=== PATIENT | female | born 1985 | race Caucasian/White ===

== ENCOUNTER 2023-09-03 10:39 | Emergency (ER) | payer MEDICAID, SELFPAY ==
[2023-09-03 11:05] VITALS: BP 124/83; PULSE 76; RESP 18; TEMP 36.9; O2SAT 100; BMI 25.7
--- NOTE | 2023-09-03 11:14 | EXP.UTC ---
Discharge Plan Disposition Patient Disposition: Home, Self-Care Condition: Good Prescriptions Prescriptions: New methylprednisolone 4 mg Tablets,Dose Pack 4 mg PO DIRECTED 6 Days Qty: 21 0RF Rx Instructions: Take 1 pack as directed for 6 days amoxicillin-pot clavulanate 875-125 mg Tablet 1 tab PO Q12H 7 Days Qty: 14 0RF Referrals Follow up/Referrals: Andres Glover DO [Staff Physician] - See instructions Fernando Washington PA [Primary Care Provider] - See instructions Activity Restrictions/Add. Instructions Additional Instructions/Restrictions: Rest the extremity, Elevate the extremity as tolerated while you are resting. Take the medications as directed. Follow up with Dr. Glover (orthopedics). I put in a referral but you need to call his office and schedule an appointment. Follow up with your regular doctor. GO TO THE ER FOR ANY WORSENING SYMPTOMS Clinical Impressions Clinical Impression: Tenosynovitis of left wrist Instructions Patient Instructions: Tenosynovitis, DI for Tenosynovitis Discharge ED Provider: Robin Jordan [facility] General Stated complaint: 08/03, cat bite, bruising Time Seen by Provider: 09/03/23 11:14 History of Present Illness Provider Complaint: She states that she was bit by her cat on the inner aspect of her right wrist 1 month ago. She was treated with augmentin at that time and the wounds healed. She states that all her symptoms were resolved, but then 2 days ago she began having pain of her wrist and the palm of her hand with movment. She also states that the area around where the bite occurred has became tender to touch over the past 2 days also. She denies any redness, swelling or warmth of the affected area. She denies any additional symptoms or complaints. Related Data Previous Rx's Medication Instructions Recorded amoxicillin 875 mg-potassium 1 tab PO Q12H 7 days #14 tabs 09/03/23 clavulanate 125 mg tablet methylprednisolone 4 mg tablets in 4 mg PO DIRECTED 6 days #21 tabs 09/03/23 a dose pack Allergies Allergy/AdvReac Type Severity Reaction Status Date / Time clarithromycin [From Biaxin] Allergy Verified 09/03/23 11:18 valacyclovir Allergy Verified 09/03/23 11:18 [facility] Disclaimer: The information contained in this section may have been updated after the patient was seen, as this information can be updated by other users. Medical History (Updated 09/03/23 @ 11:37 by Robin Jordan APRN) Depression Anxiety Thyroid disease Urinary tract infection History of gastroesophageal reflux (GERD) Hyperlipidemia Lyme disease Surgical History (Updated 09/03/23 @ 11:21 by Kathy Farah RN) History of cholecystectomy Social History Smoking Status: Never smoker alcohol intake: never current occupational status: unemployed Travel in the last 8 weeks: None ROS Obtained: Yes All systems reviewed & no additional complaints except as documented Constitutional Constitutional: Denies chills and Denies fever(s) Eyes Eyes: Denies eye discharge ENT Ears, Nose, Mouth, and Throat: Denies dizziness, Denies otalgia and Denies sore throat Cardiovascular Cardiovascular: Denies chest pain Respiratory Respiratory: Denies shortness of breath, Denies chest congestion, Denies cough, Denies stridor and Denies wheezing Gastrointestinal Gastrointestingal: Denies nausea or vomiting Musculoskeletal Musculoskeletal: Reports as per HPI Integumentary/Breasts Skin/Breast: Denies redness, Denies rash and Denies wounds Neurologic Neurologic: Denies dizziness and Denies paresthesias Allergic/Immunologic Allergic/Immunologic: Denies wheezing Physical Exam General General appearance: alert and in no apparent distress Head Head exam: atraumatic, normocephalic and normal inspection Eye Eye exam: Present normal appearance, PERRL and EOMI ENT ENT exam: Present normal exam, normal oropharynx, mucous membranes moist, TM's normal bilaterally and normal external ear exam Neck Neck exam: Present normal inspection, full ROM and trachea midline; Absent meningismus or lymphadenopathy Chest Chest inspection: Present normal inspection and symmetric chest wall rise; Absent tenderness Respiratory Respiratory exam: Present normal lung sounds bilaterally; Absent respiratory distress Cardiovascular Cardiovascular exam: Present regular rate and normal rhythm; Absent JVD Abdominal Exam Abdominal exam: Present soft and normal bowel sounds; Absent distention, tenderness or guarding Extremities Exam Extremities exam: Present normal capillary refill; Absent calf tenderness Expanded Upper Extremity Exam Right: Elbow exam: Present normal inspection and full ROM; Absent tenderness, pain w/ pronation/supination or tenderness over radial head Forearm/Wrist exam: Present full ROM and tenderness; Absent swelling, abrasion, laceration, ecchymosis, deformity, crepitus, dislocation, erythema, tenderness over anatomical snuff box or pain with axial thumb loading Hand exam: Present full ROM and tenderness; Absent swelling, abrasion, laceration, skin avulsion, ecchymosis, deformity, crepitus, dislocation, erythema, amputation, nail avulsion or subungual hematoma Neuromotor exam: Normal wrist extension, thumb opposition, thumb IP flexion, thumb adduction and fingers 2-5 abduction Neurosensory exam: Normal radial nerve, ulnar nerve and median nerve Vascular exam: Normal capillary refill, radial pulse and ulnar pulse Back Exam Back exam: Present normal inspection; Absent tenderness Neurological Exam Neurological exam: Present alert and oriented X3 Psychiatric Psychiatric exam: Present normal affect and normal mood Skin Skin exam: Present warm, dry, intact, normal color and other (no redness, swelling or warmth noted in the affected area. ) Lymphatic Lymphatic Findings: no adenopathy Medical Decision Making Joe Inquiry Pt receiving controlled substance: No Procedures Risk/Benefits of Procedure(s) Were Explained: Yes Orthopedic Splinting/Casting Injury #1: Side: right Upper Extremity Injury Location: wrist and hand Upper Extremity Immobilizer: volar splint Post Cast/Splinting Neuro Status: intact and no change Post Cast/Splinting Vasc Status: intact and no change
[2023-09-03 11:41] VITALS: BP 124/83; PULSE 76; RESP 18; TEMP 36.9; O2SAT 100
== END 2023-09-03 12:01 | disposition home or self-care (01) ==
PROVIDERS: Emergency Provider Nurse Practitioner Family; PCP Physician Assistant
DX: M65.841 Other synovitis and tenosynovitis, right hand (principal); Z56.0 Unemployment, unspecified
CPT/HCPCS: 99204; 99212; G0463

== ENCOUNTER 2023-10-18 11:55 | Emergency (ER) | payer MEDICAID, SELFPAY ==
[2023-10-18 12:10] VITALS: BP 130/80; PULSE 74; RESP 18; TEMP 36.8; O2SAT 98; BMI 25.7
--- NOTE | 2023-10-18 12:18 | EXP.UTC ---
Discharge Plan Disposition Patient Disposition: Home, Self-Care Condition: Good Prescriptions Prescriptions: New sucralfate [Carafate] 100 mg/mL suspension 5 ml PO QID 14 Days Qty: 280 0RF Rx Instructions: swish in mouth and swallow; use after food/drink esomeprazole magnesium 20 mg capsule,delayed release(DR/EC) 20 mg PO DAILY Qty: 30 0RF No Action amitriptyline 25 mg tablet 25 mg PO DAILY hydroxyzine HCl 25 mg tablet 25 mg PO DAILY Referrals Follow up/Referrals: Helder Morton MD [Physician] - See instructions Fernando Washington PA [Primary Care Provider] - See instructions Activity Restrictions/Add. Instructions Additional Instructions/Restrictions: Drink plenty of water. Take the medications as directed. Follow up with your regular doctor. Follow up with your GI specialist. GO TO THE ER FOR ANY WORSENING SYMPTOMS We will culture your urine. The u/s results looked okay, but we will let you know about the culture results in 3 days. Clinical Impressions Clinical Impression: Gastritis, Eosinophilic esophagitis Instructions Patient Instructions: Sucralfate, Esomeprazole Discharge ED Provider: Robin Jordan [facility] [place] General Stated complaint: gi inflammation Time Seen by Provider: 10/18/23 12:18 History of Present Illness Provider Complaint: She states that for the past 2 weeks she has had worsening heart burn, poor appetite, epigastric cramping. She had an EGD and Colonoscopy done at 3 weeks ago and she was told she had Eosinophillic esophagitis, but nothing else. Related Data Home Medications Medication Instructions Recorded Confirmed amitriptyline 25 mg tablet 25 mg PO DAILY 10/18/23 10/18/23 hydroxyzine HCl 25 mg tablet 25 mg PO DAILY 10/18/23 10/18/23 Previous Rx's Medication Instructions Recorded esomeprazole magnesium 20 mg 20 mg PO DAILY #30 caps 10/18/23 capsule,delayed release sucralfate 100 mg/mL oral 5 ml PO QID 14 days #280 mL 10/18/23 suspension (Carafate) Allergies Allergy/AdvReac Type Severity Reaction Status Date / Time clarithromycin [From Biaxin] Allergy Vomiting Verified 10/18/23 12:22 valacyclovir Allergy Palpitation Verified 10/18/23 12:22 [facility] Disclaimer: The information contained in this section may have been updated after the patient was seen, as this information can be updated by other users. Medical History (Updated 10/18/23 @ 13:09 by Robin Jordan APRN) Depression Anxiety Thyroid disease Urinary tract infection History of gastroesophageal reflux (GERD) Hyperlipidemia Lyme disease Surgical History History of cholecystectomy Social History Smoking Status: Never smoker alcohol intake: never current occupational status: unemployed Travel in the last 8 weeks: None ROS Obtained: Yes All systems reviewed & no additional complaints except as documented Constitutional Constitutional: Denies chills, Denies fever(s) and Reports poor appetite ENT Ears, Nose, Mouth, and Throat: Denies dizziness, Denies dysphagia, Denies odynophagia and Denies sore throat Cardiovascular Cardiovascular: Denies dyspnea Respiratory Respiratory: Denies chest congestion, Denies cough and Denies dyspnea Gastrointestinal Gastrointestingal: Reports as per HPI, belching, cramping, diarrhea, dyspepsia, early satiety, heartburn and nausea; Denies abdominal pain, dysphagia, hematemesis, hematochezia, loose stools, melena, odynophagia or vomiting Genitourinary Female Genitourinary: Denies difficulty voiding, Denies dysuria, Denies hematuria, Denies urinary frequency, Denies urinary incontinence, Denies urinary hesitancy and Denies urinary urgency Musculoskeletal Musculoskeletal: Denies arthralgias Integumentary/Breasts Skin/Breast: Denies rash Neurologic Neurologic: Denies dizziness Physical Exam General General appearance: alert and in no apparent distress Head Head exam: atraumatic and normocephalic Eye Eye exam: Present normal appearance, PERRL and EOMI ENT ENT exam: Present normal exam, normal oropharynx, mucous membranes moist, TM's normal bilaterally and normal external ear exam Neck Neck exam: Present normal inspection, full ROM and trachea midline; Absent tenderness, meningismus or lymphadenopathy Chest Chest inspection: Present normal inspection and symmetric chest wall rise; Absent tenderness, rash or abscess Respiratory Respiratory exam: Present normal lung sounds bilaterally; Absent respiratory distress, wheezes or stridor Cardiovascular Cardiovascular exam: Present regular rate and normal rhythm; Absent irregular rhythm, systolic murmur, diastolic murmur or JVD Abdominal Exam Abdominal exam: Present soft and normal bowel sounds; Absent distention, tenderness, guarding, rebound, rigidity, psoas sign, obturator sign, heel tap sign, Hope's sign, Rovsing's sign or tenderness at McBurney's Point Extremities Exam Extremities exam: Present normal inspection and full ROM; Absent tenderness Back Exam Back exam: Present normal inspection and full ROM; Absent tenderness, CVA tenderness (R) or CVA tenderness (L) Neurological Exam Neurological exam: Present alert, oriented X3 and CN II-XII intact Psychiatric Psychiatric exam: Present normal affect and normal mood Skin Skin exam: Present warm, dry, intact and normal color Lymphatic Lymphatic Findings: no adenopathy Medical Decision Making Medical Records Medical records reviewed: No I reviewed the patient's medical records. Joe Inquiry Pt receiving controlled substance: No Lab Data Lab results reviewed: Yes I reviewed the patient's lab results.
[2023-10-18 13:07] LABS: Apearance,Urine Clear (Clear); Bilirubin,Urine Negative (Negative); Blood, Urine 2+ (Negative); Color,Urine Yellow (Yellow); Glucose,Urine (UA) Negative (Negative); Ketones,Urine Negative (Negative); Protein,Urine Negative (Negative); UTC Leukocyte Esterase,Urine Trace (Negative); Urobilinogen,Urine 0.2 EU/dl (0.2)
[2023-10-18 13:08] LABS: UTC Nitrate,Urine Negative (Negative)
--- NOTE | 2023-10-18 13:08 | PC.NURSE ---
Sent urine to lab via tube system
[2023-10-18 13:16] VITALS: BP 130/80; PULSE 74; RESP 18; TEMP 36.8; O2SAT 98
== END 2023-10-18 13:16 | disposition home or self-care (01) ==
PROVIDERS: Emergency Provider Nurse Practitioner Family; PCP Physician Assistant
DX: K29.00 Acute gastritis without bleeding (principal); K20.0 Eosinophilic esophagitis; B96.29 Other Escherichia coli [E. coli] as the cause of diseases classified elsewhere
CPT/HCPCS: 81003; 87086; 87088; 87186; 99212; 99214; G0463

== ENCOUNTER 2023-12-24 10:48 | Emergency (ER) | payer MEDICAID, SELFPAY ==
[2023-12-24] VITALS (7 sets, daily range): BP systolic 111–136; BP diastolic 65–89; PULSE 64–88; RESP 19–20; TEMP 36.7–36.8; O2SAT 96–99; BMI 25.7
--- NOTE | 2023-12-24 10:48 | ECG_ITS ---
APPROVED REPORT Exam: Resting ECG HR:85 bpm ECG Measurements Heart Rate 85 AXES AZ 104 P 70 QRSd 97 QRS 80 QT 365 T 63 QTc 407 Conclusion SINUS RHYTHM WITH SINUS ARRHYTHMIA WITH SHORT AZ INTERVAL INCOMPLETE RIGHT BUNDLE BRANCH BLOCK [90+ ms QRS DURATION, TERMINAL R IN V1/V2, 40+ ms S IN I/aVL/V4/V5/V6] Electronically signed by : JUNAID DOMINGUEZ, 12/24/2023 14:17:11
--- NOTE | 2023-12-24 10:54 | XR_ITS ---
PROCEDURE INFORMATION: Exam: XR Chest Exam date and time: 12/24/2023 11:33 AM Age: 38 years old Clinical indication: Shortness of breath; Additional info: Palpitations, SOA TECHNIQUE: Imaging protocol: Radiologic exam of the chest. Views: 2 views. COMPARISON: No relevant prior studies available. FINDINGS: Lungs: 8 mm nodularity superimposed upon the right lower lung. Findings most likely correspond to a nipple shadow. Follow-up with nipple markers would be helpful. Pleural spaces: Unremarkable. No pleural effusion. No pneumothorax. Heart/Mediastinum: Unremarkable. No cardiomegaly. Bones/joints: Unremarkable. IMPRESSION: 1. 8 mm nodularity superimposed upon the right lower lung. Findings most likely correspond to a nipple shadow. Follow-up with nipple markers would be helpful. 2. No evidence of acute cardiopulmonary disease.
--- NOTE | 2023-12-24 10:55 | HMH.EDGENADL ---
Discharge Plan Disposition Patient Disposition: Home, Self-Care Condition: Good Prescriptions Prescriptions: New atenolol 25 mg tablet 25 mg PO DAILY Qty: 30 1RF methimazole 5 mg tablet 5 mg PO DAILY Qty: 30 1RF No Action amitriptyline 25 mg tablet 25 mg PO DAILY hydroxyzine HCl 25 mg tablet 25 mg PO DAILY sucralfate [Carafate] 100 mg/mL suspension 5 ml PO QID 14 Days Qty: 280 0RF Rx Instructions: swish in mouth and swallow; use after food/drink esomeprazole magnesium 20 mg capsule,delayed release(DR/EC) 20 mg PO DAILY Qty: 30 0RF Referrals Follow up/Referrals: Fernando Washington PA [Primary Care Provider] - See instructions Activity Restrictions/Add. Instructions Additional Instructions/Restrictions: You were evaluated in the emergency department today. At this time, your TSH level is very low, indicating subclinical hyperthyroidism. For this, I am prescribing you methimazole and atenolol, however these were not generally medications that we manage from the emergency department in the setting of hyperthyroidism. Because of this, it is very important to follow-up very closely with your primary care provider as well as your mainspring winder and oiler. Please return to the emergency department right away for new or worsening symptoms, such as worsening palpitations, anxiety, or other concerns. Clinical Impressions Clinical Impression: Hyperthyroidism, subclinical Stand Alone Forms Stand Alone Forms: Work/School Release Instructions Patient Instructions: DI for Hyperthyroidism Discharge ED Provider: Ana Maria Corrales General Adult HPI General Chief complaint: Chest Pain Stated complaint: chest pain Time Seen by Provider: 12/24/23 10:54 History of Present Illness HPI narrative: This patient is a 38-year-old female with a history of chronic Lyme disease, idiopathic hypothyroidism, and histoplasmosis presenting to the emergency department for evaluation with concern for palpitations. Patient reports that she had a GI illness recently with nausea, poor appetite, and diarrhea, and for the last week she feels like something is off. She notes that she is having palpitations, increase in anxiety, and sleep disturbance, which feels very similar to 2020 when she had idiopathic hypothyroidism. She notes she was treated for several months with methimazole, and this resolved and had not recurred since. She states that the symptoms are almost exactly the same as when she experienced this in the past. She does note she has history of anxiety, though not this severe. On review of systems, she also notes that she feels like she cannot quite get her breath. Related Data Home Medications Medication Instructions Recorded Confirmed amitriptyline 25 mg tablet 25 mg PO DAILY 10/18/23 10/18/23 hydroxyzine HCl 25 mg tablet 25 mg PO DAILY 10/18/23 10/18/23 Previous Rx's Medication Instructions Recorded esomeprazole magnesium 20 mg 20 mg PO DAILY #30 caps 10/18/23 capsule,delayed release sucralfate 100 mg/mL oral 5 ml PO QID 14 days #280 mL 10/18/23 suspension (Carafate) atenolol 25 mg tablet 25 mg PO DAILY #30 tabs 12/24/23 methimazole 5 mg tablet 5 mg PO DAILY #30 tabs 12/24/23 Allergies Allergy/AdvReac Type Severity Reaction Status Date / Time clarithromycin [From Biaxin] Allergy Vomiting Verified 12/24/23 11:13 valacyclovir Allergy Palpitation Verified 12/24/23 11:13 [facility] Disclaimer: The information contained in this section may have been updated after the patient was seen, as this information can be updated by other users. Medical History Depression Anxiety Thyroid disease Urinary tract infection History of gastroesophageal reflux (GERD) Hyperlipidemia Lyme disease Surgical History History of cholecystectomy Social History Smoking Status: Never smoker alcohol intake: never current occupational status: unemployed Travel in the last 8 weeks: None ROS Obtained: Yes All systems reviewed & no additional complaints except as documented Physical Exam General General appearance: alert, in no apparent distress and anxious Head Head exam: atraumatic and normocephalic Eye Eye exam: Present normal appearance, PERRL and EOMI ENT ENT exam: Present normal exam, normal oropharynx, mucous membranes moist and normal external ear exam Neck Neck exam: Present normal inspection, full ROM and trachea midline; Absent tenderness Chest Chest inspection: Present normal inspection and symmetric chest wall rise; Absent tenderness Respiratory Respiratory exam: Present normal lung sounds bilaterally; Absent respiratory distress, wheezes, stridor or accessory muscle use Cardiovascular Cardiovascular exam: Present regular rate and normal rhythm Abdominal Exam Abdominal exam: Present soft; Absent distention, tenderness or guarding Extremities Exam Extremities exam: Present normal inspection, full ROM and normal capillary refill; Absent tenderness or edema Back Exam Back exam: Present normal inspection and full ROM; Absent tenderness Neurological Exam Neurological exam: Present alert, oriented X3, CN II-XII intact and normal gait; Absent motor sensory deficit Psychiatric Psychiatric exam: Present normal affect and anxious Skin Skin exam: Present warm and dry Medical Decision Making Medical Records Medical records reviewed: Yes I reviewed the patient's medical records. Joe Inquiry Pt receiving controlled substance: No Vital Signs: 12/24/23 11:05 12/24/23 11:05 12/24/23 11:10 Temperature 98.1 F Temperature Source Oral Pulse Rate 84 85 Pulse Rate [Left] 88 Respiratory Rate 19 Blood Pressure 116/65 Blood Pressure [Right Arm] 136/89 Blood Pressure Mean Blood Pressure Mean [Right Arm] 104 Blood Pressure Source [Right Arm] Automatic Cuff Blood Pressure Position [Right Arm] Sitting 02 Sat by Pulse Oximetry 96 96 Oxygen Delivery Method Room Air Room Air 12/24/23 11:30 12/24/23 12:00 12/24/23 12:30 Temperature Temperature Source Pulse Rate 71 64 66 Pulse Rate [Left] Respiratory Rate Blood Pressure 113/73 113/70 120/82 Blood Pressure [Right Arm] Blood Pressure Mean Blood Pressure Mean [Right Arm] Blood Pressure Source [Right Arm] Blood Pressure Position [Right Arm] 02 Sat by Pulse Oximetry 99 97 96 Oxygen Delivery Method Room Air Room Air 12/24/23 13:00 12/24/23 13:27 Temperature 98.3 F Temperature Source Oral Pulse Rate 71 71 Pulse Rate [Left] Respiratory Rate 20 Blood Pressure 111/81 111/81 Blood Pressure [Right Arm] Blood Pressure Mean 85 Blood Pressure Mean [Right Arm] Blood Pressure Source [Right Arm] Blood Pressure Position [Right Arm] 02 Sat by Pulse Oximetry 96 Oxygen Delivery Method Room Air Lab Data Lab results reviewed: Yes I reviewed the patient's lab results. Lab Results 12/24/23 10:51: WBC 6.2, RBC 4.46, Hgb 14.9, Hct 43.6, MCV 97.7, MCH 33.5 H, MCHC 34.2, RDW 14.3, Plt Count 236, MPV 9.1, Neut % (Auto) 61.4, Lymph % (Auto) 29.4, [place] % (Auto) 6.6, Eos % (Auto) 1.2, Baso % (Auto) 1.4, Neut # (Auto) 3.8, Lymph # (Auto) 1.8, [place] # (Auto) 0.4, Eos # (Auto) 0.1, Baso # (Auto) 0.1, D-Dimer < 0.25, Sodium 139, Potassium 4.1, Chloride 108 H, Carbon Dioxide 25, Anion Gap 10.1, BUN 12, Creatinine 0.70, Estimated GFR 95, Est GFR ( Amer) 115, Glucose 81, Calcium 9.2, Magnesium 2.0, Total Bilirubin 0.4, AST 28, ALT 21, Alkaline Phosphatase 58, Troponin I < 0.01, Total Protein 7.3, Albumin 4.2, Globulin 3.1, Albumin/Globulin Ratio 1.4, TSH 0.13 L, Free T4 1.36, Thyroxine (T4) 10.5 12/24/23 10:54: Urine Color Yellow, Urine Appearance Clear, Urine pH 6.0, Ur Specific [place] <= 1.005, Urine Protein Negative, Urine Glucose (UA) Negative, Urine Ketones Negative, Urine Blood 3+, Urine Nitrate Negative, Urine Bilirubin Negative, Urine Urobilinogen 0.2, Ur Leukocyte Esterase Negative, Urine RBC 5-10, Ur Squamous Epith Cells 3-5, Urine HCG, Qual Negative 12/24/23 10:51 12/24/23 10:51 Orders (Tests/Meds): ED MEDICATIONS Discontinued Medications Generic Name Dose Route Start Last Admin Trade Name Kristin PRN Reason Stop Dose Admin Atenolol 25 mg 12/24/23 12:30 12/24/23 13:19 Atenolol 25mg Tablet PO 12/24/23 12:31 25 mg ONCE ONE Administration Lactated Ringer's 1,000 mls @ 999 mls/hr 12/24/23 11:00 12/24/23 11:10 Lactated Ringer's 1000 Ml Bag IV 12/24/23 12:00 999 mls/hr .Q1H1M ONE Administration ORDERS Category Date Time Status XR chest 2V Stat Exams 12/24/23 10:54 Completed Complete Blood Count Auto Diff Stat Lab 12/24/23 10:51 Completed Comprehensive Metabolic Panel Stat Lab 12/24/23 10:51 Completed D-Dimer Stat Lab 12/24/23 10:51 Completed Free T4 (Free Thyroxine) Stat Lab 12/24/23 10:51 Completed MAG [Magnesium] Stat Lab 12/24/23 10:51 Completed T4 (Thyroxine) Stat Lab 12/24/23 10:51 Completed TSH [Thyroid Stimulating Hormone] Stat Lab 12/24/23 10:51 Completed Triiodothyronine (T3) Free Stat Lab 12/24/23 10:51 Received Trop I [Troponin I] Stat Lab 12/24/23 10:51 Completed UA [Urinalysis and Microscopic] Stat Lab 12/24/23 10:54 Completed Urine , HCG Qual. Stat Lab 12/24/23 10:54 Completed ECG Data Tracing #1: I reviewed this ECG and interpreted as documented below: Sinus rhythm with sinus arrhythmia with a ventricular rate of 85 bpm. Normal axis. Incomplete right bundle branch block noted. No acute ST changes concerning for ischemia. No prior ECG available for comparison. ECG initial impression date: 12/24/23 ECG initial impression time: 10:49 Medical Decision Narrative: In summary, this patient is a 38-year-old female presenting to the Emergency Department for evaluation of palpitations, anxiety, sleep disturbance, and shortness of air. Differential diagnoses considered include but are not limited to thyroid disturbance, anxiety, panic attack, dehydration, electrolyte derangements, anemia, ACS, dysrhythmia, PE. Ruling out the most morbid conditions drove assessment. It should be noted patient's history includes prior history of hypothyroidism as well as chronic Lyme disease and histoplasmosis which may or may not be at goal therapy. This complicates all aspects of care by increasing patient's risk for morbidity. On exam, the patient is resting comfortably in bed in no acute distress. She is mildly anxious appearing, but vitals are reassuring on cardiac telemetry. EKG obtained is reassuring. Workup included CBC, CMP, magnesium, TSH, T4, free T3, free T4, troponin, D-dimer, chest x-ray. Patient was given a bolus of IV fluids. I independently interpreted x-ray prior to the radiologist read and noted no obvious large area of consolidation and no pneumothorax. Please see their read for final interpretation. They noted a possible nodule in the right lower lobe versus nipple shadow. Patient took disc of the x-ray and is to follow-up with her product manager medical device for this. Labs were obtained that demonstrated negative D-dimer, normal troponin, normal electrolytes and renal function, and normal CBC. Patient does have significantly low TSH with normal T4. Patient advises this is what happened last time she had hypothyroidism, and her symptoms feel very similar. She notes that she was managed by endocrinology with [facility] on 5 mg of methimazole daily as well as atenolol. I advised her that we do not typically prescribe these from the ER, as she will require close follow-up for monitoring of her thyroid levels and symptoms. She advised that she would feel much better if she had these prescriptions to go home with, as last time things got out of control very quickly when her thyroid hormone levels got out of whack. After risk versus benefit discussion, I did decide to go ahead and prescribe the patient methimazole and atenolol at her previous dosages. At this time, I feel the patient is appropriate for discharge home with close follow-up with endocrinology as well as her primary care provider. I gave her very strict return precautions should her symptoms of hyperthyroidism worsen or should she develop any adverse effects of the medications. Strict return precautions were given, and the patient was discharged after all questions were answered. Critical Care Critical Care Time Critical Care Time: No
[2023-12-24 11:04] LABS: Basophils # 0.1 K/mm3 (0-0.2); Basophils % 1.4 % (0.1-2.0); Eosinophils # 0.1 K/mm3 (0.0-0.4); Eosinophils % 1.2 % (0.1-12.0); Hematocrit 43.6 % (37.0-47.0); Hemoglobin 14.9 g/dL (12.2-16.2); Lymphocytes # 1.8 K/mm3 (0.7-4.5); Lymphocytes % 29.4 % (10-50); Mean Corpuscular HGB Conc 34.2 g/dL (31.8-35.4); Mean Corpuscular Hemoglobin 33.5 pg (27.0-31.2); Mean Corpuscular Volume 97.7 fl (81-99); Mean Platelet Volume 9.1 fl (7.4-10.4); Monocytes # 0.4 K/mm3 (0.1-1.0); Monocytes % 6.6 % (1.7-9.3); Neutrophils # 3.8 K/mm3 (1.8-7.8); Neutrophils % 61.4 % (37.0-80.0); Platelet Count 236 K/mm3 (142-424); Red Blood Count 4.46 M/mm3 (4.20-5.40); Red Cell Distribution Width 14.3 % (11.5-17.5); White Blood Count 6.2 K/mm3 (4.8-10.8)
[2023-12-24 11:09] LABS: Alanine Aminotransferase 21 U/L (12-78); Albumin Level 4.2 g/dl (3.5-5.0); Albumin/Globulin Ratio 1.4 (1.1-1.8); Alkaline Phosphatase 58 U/L (38-126); Anion Gap 10.1 mEq/L (5-15); Aspartate Amino Transferase 28 U/L (14-36); Bilirubin,Total 0.4 mg/dl (0.2-1.3); Blood Urea Nitrogen 12 mg/dl (7-17); Calcium 9.2 mg/dl (8.4-10.2); Carbon Dioxide 25 mmol/L (22.0-30.0); Chloride 108 mmol/L (98-107); Estimated Glomerular Filt Rate 95 ml/min (>60); GFR (African American) 115 ML/MIN (>60); Globulin 3.1 g/dL (1.3-3.2); Glucose 81 mg/dl (74-100); Potassium 4.1 mmoL/L (3.5-5.1); Sodium 139 mmol/L (136-145); Total Protein,Serum 7.3 g/dl (6.3-8.2)
[2023-12-24] MEDS: LACTATED RINGERS 1000ML 1,000 ML 999 ML IV (11:10)
[2023-12-24 11:12] LABS: Microscopic, Urine URINE MICROSCOPIC (MICROSCOPIC)
[2023-12-24 11:13] LABS: Appearance,Urine CLEAR (Clear); Bilirubin,Urine Negative (Negative); Blood, Urine 3+ (Negative); Color,Urine YELLOW (Yellow); Glucose,Urine (UA) Negative (Negative); Ketones,Urine Negative (Negative); Leukocyte Esterase,Urine Negative (Negative); Nitrate,Urine Negative (Negative); Protein,Urine Negative (Negative); Specific Gravity, Urine <= 1.005 (1.005-1.030); Urobilinogen,Urine 0.2 EU/dl (0.2)
[2023-12-24 11:14] LABS: D-Dimer < 0.25 ug/mL (0.0-0.5)
[2023-12-24 11:16] LABS: Urine Pregnancy, HCG Qual. Negative (Negative)
[2023-12-24 11:27] LABS: T4 (Thyroxine) 10.5 ug/dl (5.53-11.0)
[2023-12-24 11:28] LABS: Troponin I < 0.01 ng/ml (0.00-0.034)
[2023-12-24 11:30] LABS: Free T4 (Free Thyroxine) 1.36 ng/dl (0.78-2.19)
[2023-12-24 11:41] LABS: Thyroid Stimulating Hormone 0.13 uIU/mL (0.465-4.68)
[2023-12-24] MEDS: ATENOLOL 25MG TABLET 25 MG PO (13:19)
[2023-12-25 07:52] LABS: Triiodothyronine (T3) Free 3.9 pg/mL (2.0-4.4)
== END 2023-12-24 13:28 | disposition home or self-care (01) ==
PROVIDERS: Emergency Provider Emergency Medicine; PCP Physician Assistant
DX: E05.90 Thyrotoxicosis, unspecified without thyrotoxic crisis or storm (principal); I49.9 Cardiac arrhythmia, unspecified; R00.2 Palpitations
CPT/HCPCS: 71046; 80053; 81001; 81025; 83735; 84436; 84439; 84443; 84481; 84484; 85025; 85378; 93005; 96360; 99284; J7120

== ENCOUNTER 2024-01-04 12:34 | Emergency (ER) | payer MEDICAID, SELFPAY ==
--- NOTE | 2024-01-04 | ECG_ITS ---
APPROVED REPORT Exam: Resting ECG HR:67 bpm ECG Measurements Heart Rate 67 AXES WI 139 P 63 QRSd 91 QRS 75 QT 418 T 69 QTc 434 Conclusion SINUS RHYTHM INCOMPLETE RIGHT BUNDLE BRANCH BLOCK [90+ ms QRS DURATION, TERMINAL R IN V1/V2, 40+ ms S IN I/aVL/V4/V5/V6] BORDERLINE ECG Electronically signed by : AUBREE SANCHES, 01/04/2024 16:15:46
[2024-01-04 12:50] VITALS: BP 136/81; PULSE 89; RESP 18; TEMP 36.9; O2SAT 98; BMI 25.7
[2024-01-04 13:00] VITALS: BP 132/81; PULSE 73; O2SAT 97
[2024-01-04 13:30] VITALS: BP 138/79; PULSE 74; O2SAT 98
[2024-01-04 14:00] VITALS: BP 127/79; PULSE 62; O2SAT 97
--- NOTE | 2024-01-04 14:01 | HMH.EDGENADL ---
Discharge Plan Disposition Patient Disposition: Home, Self-Care Condition: Good Prescriptions Prescriptions: No Action amitriptyline 25 mg tablet 25 mg PO DAILY hydroxyzine HCl 25 mg tablet 25 mg PO DAILY sucralfate [Carafate] 100 mg/mL suspension 5 ml PO QID 14 Days Qty: 280 0RF Rx Instructions: swish in mouth and swallow; use after food/drink esomeprazole magnesium 20 mg capsule,delayed release(DR/EC) 20 mg PO DAILY Qty: 30 0RF atenolol 25 mg tablet 25 mg PO DAILY Qty: 30 1RF methimazole 5 mg tablet 5 mg PO DAILY Qty: 30 1RF Referrals Follow up/Referrals: Fernando Washington PA [Primary Care Provider] - See instructions Activity Restrictions/Add. Instructions Additional Instructions/Restrictions: You were evaluated in the ER. You are appropriate for discharge at this time. Please call your mechanism inspector and discuss the atenolol and that your TSH is now 0.02, down from 0.13 when you were initially evaluated last week. Continue taking your other medications as previously prescribed. Return to the ER with new, worsening, or otherwise concerning symptoms. Clinical Impressions Clinical Impression: Chest pain Print Language Print Language: Venezuelan Discharge ED Provider: Shalini Win General Adult HPI General Chief complaint: Allergic Reaction Stated complaint: soa possible reaction to med Time Seen by Provider: 01/04/24 13:16 Mode of Arrival: Ambulatory Source of Information: Patient Limitations: No Limitations Description of Symptoms (Recalled from ER Triage Doc. by RN): Pt ambulatory to ED with cc an reaction to her Atenolol pt states recieving a precription for Atenolol 25 mg on 12/23. Pt states quatering the medication and only taking a 4th of the medication. Pt states on 12/30 30 mins after taking the Atenolol she devloped SOA, pressure on chest and feeling that her trachea has james's rub in it, and a cough. Pt states these symptoms have continued since 12/30. History of Present Illness HPI narrative: 38-year-old female presents to the ER for concerns of medication reaction. Patient had a thyroiditis flare and was started on methimazole and atenolol. She states she is taking a quarter of a 25 mg atenolol as needed. She states she takes as needed for symptoms like palpitations. She has been having to take it every other day, but the last few doses she has noticed that when she takes it, within about 30 minutes she develops chest tightening and pressure that feels like her trachea has menthol in it. Patient has not tried taking her asthma inhaler when she has the symptoms. Patient states she called her mechanism inspector to discuss her symptoms who referred her to the ER for evaluation. Related Data Home Medications ?Medication ?Instructions ?Recorded ?Confirmed amitriptyline 25 mg tablet 25 mg PO DAILY 10/18/23 10/18/23 hydroxyzine HCl 25 mg tablet 25 mg PO DAILY 10/18/23 10/18/23 Previous Rx's ?Medication ?Instructions ?Recorded esomeprazole magnesium 20 mg 20 mg PO DAILY #30 caps 10/18/23 capsule,delayed release sucralfate 100 mg/mL oral 5 ml PO QID 14 days #280 mL 10/18/23 suspension (Carafate) atenolol 25 mg tablet 25 mg PO DAILY #30 tabs 12/24/23 methimazole 5 mg tablet 5 mg PO DAILY #30 tabs 12/24/23 Allergies Allergy/AdvReac Type Severity Reaction Status Date / Time clarithromycin [From Biaxin] Allergy Vomiting Verified 12/24/23 11:13 valacyclovir Allergy Palpitation Verified 12/24/23 11:[address] [facility] Disclaimer: The information contained in this section may have been updated after the patient was seen, as this information can be updated by other users. Medical History Depression Anxiety Thyroid disease Urinary tract infection History of gastroesophageal reflux (GERD) Hyperlipidemia Lyme disease Surgical History History of cholecystectomy Social History Smoking Status: Never smoker alcohol intake: never current occupational status: unemployed Travel in the last 8 weeks: None ROS Obtained: Yes All systems reviewed & no additional complaints except as documented Constitutional Constitutional: Denies chills, Denies fever(s), Denies headache(s) and Denies weakness Eyes Eyes: Denies change in vision ENT Ears, Nose, Mouth, and Throat: Denies dizziness, Denies headache(s), Denies nasal congestion and Denies sore throat Cardiovascular Cardiovascular: Reports chest pain (Squeezing sensation), Reports dyspnea and Denies leg edema Respiratory Respiratory: Denies cough and Reports dyspnea Gastrointestinal Gastrointestingal: Denies constipation, diarrhea, nausea or vomiting Genitourinary Female Genitourinary: Denies dysuria Musculoskeletal Musculoskeletal: Denies arthralgias, Denies myalgias, Denies numbness and Denies tingling Integumentary/Breasts Skin/Breast: Denies change in pigmentation Neurologic Neurologic: Denies dizziness, Denies headache(s), Denies numbness, Denies tingling and Denies weakness Physical Exam General General appearance: alert and in no apparent distress Head Head exam: atraumatic and normocephalic Eye Eye exam: Present PERRL and EOMI ENT ENT exam: Present mucous membranes moist Neck Neck exam: Present normal inspection and full ROM Chest Chest inspection: Present symmetric chest wall rise Respiratory Respiratory exam: Present normal lung sounds bilaterally and other (Good air movement throughout with no adventitious sounds); Absent respiratory distress, wheezes or stridor Cardiovascular Cardiovascular exam: Present regular rate and normal rhythm Abdominal Exam Abdominal exam: Present soft; Absent distention or tenderness Extremities Exam Extremities exam: Present full ROM; Absent edema Neurological Exam Neurological exam: Present alert, oriented X3 and normal gait; Absent motor sensory deficit Psychiatric Psychiatric exam: Present normal affect and normal mood Skin Skin exam: Present warm and dry Medical Decision Making Medical Records Medical records reviewed: Yes I reviewed the patient's medical records. MR Comment: TSH on 12/23 was 0.13, T4 normal at 1.36, she also had negative D-dimer and undetectable troponin that day. Chest x-ray was personally reviewed and demonstrates questionable right haziness without definitive findings of pneumonia. Believed to be nipple shadow per radiology read Joe Inquiry Pt receiving controlled substance: No Vital Signs: 01/04/24 12:50 01/04/24 13:00 01/04/24 13:30 Temperature 98.4 F Temperature Source Oral Pulse Rate 73 74 Pulse Rate [Left Radial] 89 Respiratory Rate 18 Blood Pressure 132/81 138/79 Blood Pressure [Right Arm] 136/81 Blood Pressure Mean [Right Arm] 99 Blood Pressure Source [Right Arm] Automatic Cuff Blood Pressure Position [Right Arm] Sitting 02 Sat by Pulse Oximetry 98 97 98 Oxygen Delivery Method Room Air Room Air 01/04/24 14:00 01/04/24 14:34 Temperature Temperature Source Pulse Rate 62 65 Pulse Rate [Left Radial] Respiratory Rate Blood Pressure 127/79 116/75 Blood Pressure [Right Arm] Blood Pressure Mean [Right Arm] Blood Pressure Source [Right Arm] Blood Pressure Position [Right Arm] 02 Sat by Pulse Oximetry 97 98 Oxygen Delivery Method Lab Data Lab Results 01/04/24 14:31: WBC 6.8, RBC 4.90, Hgb 15.6, Hct 47.4 H, MCV 96.7, MCH 31.8 H, MCHC 32.9, RDW 13.7, Plt Count 270, MPV 9.7, Neut % (Auto) 57.4, Lymph % (Auto) 33.8, [place] % (Auto) 6.4, Eos % (Auto) 1.0, Baso % (Auto) 1.5, Neut # (Auto) 3.9, Lymph # (Auto) 2.3, [place] # (Auto) 0.4, Eos # (Auto) 0.1, Baso # (Auto) 0.1, Sodium 140, Potassium 3.9, Chloride 105, Carbon Dioxide 27, Anion Gap 11.9, BUN 17, Creatinine 0.90, Estimated Creat Clear 93, Estimated GFR 71, Est GFR ( Amer) 86, Glucose 92, Calcium 9.2, Total Bilirubin 0.5, AST 23, ALT 16, Alkaline Phosphatase 58, Troponin I < 0.01, Total Protein 7.7, Albumin 4.4, Globulin 3.3 H, Albumin/Globulin Ratio 1.3, TSH 0.02 L, Free T4 1.36, Serum HCG, Qual Negative 01/04/24 14:31 01/04/24 14:31 Orders (Tests/Meds): ORDERS Category Date Time Status CBC w/Auto Diff [Complete Blood Count Auto Diff] Stat Lab 01/04/24 14:31 Completed CMP [Comprehensive Metabolic Panel] Stat Lab 01/04/24 14:31 Completed Free T4 (Free Thyroxine) Stat Lab 01/04/24 14:31 Completed HCG Qualitative, Serum Stat Lab 01/04/24 14:31 Completed TSH [Thyroid Stimulating Hormone] Stat Lab 01/04/24 14:31 Completed Trop I [Troponin I] Stat Lab 01/04/24 14:31 Completed Troponin I Q3H Lab 01/04/24 16:45 Ordered Troponin I Q3H Lab 01/04/24 19:45 Ordered HEART Score History (anamnesis): Slightly suspicious ECG: Non-specific disturbance Age: <45 years Risk factors: No known risk factors Troponin: </= normal limit HEART Score: 1 Medical Decision Narrative: In summary, this 38-year-old female presents to the emergency department today with concerns of chest tightness, sensation of shortness of breath, sensation of menthol in her trachea after taking her atenolol. She reports her last dose of atenolol was yesterday and her symptoms were somewhat improved today but not gone so she came to the ER at the recommendation of her mechanism inspector. On initial evaluation patient is hemodynamically stable, afebrile, pulmonary exam is reassuring with good air movement throughout, no adventitious sounds, no wheezing, no peripheral edema, patient states her hyperthyroid symptoms have improved with treatment of methimazole and atenolol but she is concerned about her medication reaction to the atenolol. Differential diagnosis includes but is not limited to medication side effect, patient was concerned about allergic reaction but does not have findings of anaphylaxis, no angioedema, considered persistent hyperthyroid, electrolyte abnormality, arrhythmia, dehydration, asthma exacerbation, pneumonia, pleural effusion, pneumothorax. Based on these concerns, I ordered ECG, basic serum labs. I recommended to the patient that a chest x-ray be performed. At this time she refuses since she had a relatively reassuring chest x-ray 11 days ago. We did discuss the slight abnormality in the right lung and patient does report a history of walking pneumonia, but at this time is refusing. ECG personally interpreted demonstrates normal sinus rhythm, rate 67, normal axis, normal NV and QTc, there is slight widening of the QRS in a pattern consistent with incomplete right bundle branch block, no STEMI Labs personally reviewed demonstrate no leukocytosis or anemia, normal platelets, CMP unremarkable, nonactionable, initial troponin undetectably low at less than 0.01, given duration of symptoms if patient was having acute cardiac stress or injury I would anticipate this to be elevated. I do not believe serial troponins are necessary at this time. test negative. TSH is lower than it was 11 days ago, now 0.02, however patient's free T4 remains stable at 1.36. On reevaluation patient states she continues to feel stable and even slightly improved. She is reassured by this workup. She is going to call her mechanism inspector to discuss the atenolol since this seems to be the most likely cause of her symptoms. I believe this is reasonable. She is appropriate for discharge at this time. Patient was given instructions on symptomatic management, follow up instructions, and return precautions for the emergency department. Patient indicated understanding and was discharged in stable condition. Critical Care Critical Care Time Critical Care Time: No
[2024-01-04 14:34] VITALS: BP 116/75; PULSE 65; O2SAT 98
[2024-01-04 14:44] LABS: Basophils # 0.1 K/mm3 (0-0.2); Basophils % 1.5 % (0.1-2.0); Eosinophils # 0.1 K/mm3 (0.0-0.4); Hematocrit 47.4 % (37.0-47.0); Hemoglobin 15.6 g/dL (12.2-16.2); Lymphocytes # 2.3 K/mm3 (0.7-4.5); Lymphocytes % 33.8 % (10-50); Mean Corpuscular HGB Conc 32.9 g/dL (31.8-35.4); Mean Corpuscular Hemoglobin 31.8 pg (27.0-31.2); Mean Corpuscular Volume 96.7 fl (81-99); Mean Platelet Volume 9.7 fl (7.4-10.4); Monocytes # 0.4 K/mm3 (0.1-1.0); Monocytes % 6.4 % (1.7-9.3); Neutrophils # 3.9 K/mm3 (1.8-7.8); Neutrophils % 57.4 % (37.0-80.0); Platelet Count 270 K/mm3 (142-424); Red Cell Distribution Width 13.7 % (11.5-17.5); White Blood Count 6.8 K/mm3 (4.8-10.8)
[2024-01-04 14:51] LABS: Alanine Aminotransferase 16 U/L (12-78); Albumin Level 4.4 g/dl (3.5-5.0); Albumin/Globulin Ratio 1.3 (1.1-1.8); Alkaline Phosphatase 58 U/L (38-126); Anion Gap 11.9 mEq/L (5-15); Aspartate Amino Transferase 23 U/L (14-36); Bilirubin,Total 0.5 mg/dl (0.2-1.3); Blood Urea Nitrogen 17 mg/dl (7-17); Calcium 9.2 mg/dl (8.4-10.2); Carbon Dioxide 27 mmol/L (22.0-30.0); Chloride 105 mmol/L (98-107); Creatinine Clearance Estimated 93 mL/min (50-200); Estimated Glomerular Filt Rate 71 ml/min (>60); GFR (African American) 86 ML/MIN (>60); Globulin 3.3 g/dL (1.3-3.2); Glucose 92 mg/dl (74-100); Potassium 3.9 mmoL/L (3.5-5.1); Sodium 140 mmol/L (136-145); Total Protein,Serum 7.7 g/dl (6.3-8.2)
[2024-01-04 15:01] LABS: HCG Qualitative, Serum Negative (Negative)
[2024-01-04 15:05] LABS: Troponin I < 0.01 ng/ml (0.00-0.034)
[2024-01-04 15:21] LABS: Thyroid Stimulating Hormone 0.02 uIU/mL (0.465-4.68)
[2024-01-04 15:24] LABS: Free T4 (Free Thyroxine) 1.36 ng/dl (0.78-2.19)
--- NOTE | 2024-01-04 15:26 | PC.NURSE ---
Called lab to check on the status of tsh, per Dr. Win. Lab states it is resulting now.
[2024-01-04 15:59] VITALS: BP 118/75; PULSE 65; RESP 17; TEMP 36.9; O2SAT 98
== END 2024-01-04 16:06 | disposition home or self-care (01) ==
PROVIDERS: Emergency Provider Emergency Medicine; PCP Physician Assistant
DX: R07.9 Chest pain, unspecified (principal); R06.02 Shortness of breath; E05.90 Thyrotoxicosis, unspecified without thyrotoxic crisis or storm
CPT/HCPCS: 80050; 80053; 84439; 84443; 84484; 84703; 85025; 93005; 99283

== ENCOUNTER 2024-01-23 14:29 | Outpatient (CLI) | payer MEDICAID, SELFPAY | END 2024-01-23 23:59 | disposition home or self-care (01) | LOC: LAB.DROPOF 01-24 08:37 | PROVIDERS: PCP Nurse Practitioner; Visit Provider Nurse Practitioner | DX: L60.0 Ingrowing nail (principal) | CPT/HCPCS: 87102; 87206; 87220 ==

== ENCOUNTER 2024-03-22 13:14 | Emergency (ER) | payer MEDICAID, SELFPAY ==
--- NOTE | 2024-03-22 13:13 | ECG_ITS ---
APPROVED REPORT Exam: Resting ECG HR:70 bpm ECG Measurements Heart Rate 70 AXES SC 135 P 61 QRSd 99 QRS 85 QT 404 T 63 QTc 425 Conclusion Sinus rhythm Incomplete right bundle branch block Electronically signed by : ESA PORTER, 03/22/2024 14:55:01
[2024-03-22 13:15] VITALS: BP 160/95; PULSE 78; RESP 16; TEMP 36.9; O2SAT 97; BMI 27.1
[2024-03-22 13:21] VITALS: PULSE 70
--- NOTE | 2024-03-22 13:28 | ED_ITS ---
Discharge Plan Disposition Patient Disposition: Home, Self-Care Chief Complaint: Chest Pain Prescriptions Prescriptions: No Action propranolol 10 mg tablet 10 mg PO ONCE ivermectin 1 % cream topical mupirocin 2 % ointment 1 applic topical BID 14 Days Qty: 15 0RF methimazole 5 mg tablet 5 mg PO DAILY Qty: 30 1RF Referrals Follow up/Referrals: Provider,Referral, MD [Referring] - See instructions Activity Restrictions/Add. Instructions Additional Instructions/Restrictions: Call your family doctor to establish care for this visit to the emergency department and schedule follow-up within 48 hours to ensure improvement. If you have any worsening of your condition or any other concerning signs or symptoms, return to the emergency department or your primary care doctor for further evaluation. Clinical Impressions Clinical Impression: Heart palpitations Print Language Print Language: [place]raini Discharge ED Provider: Jeremias Obrien General Chief Complaint: Chest Pain Stated Complaint: chest pain Time Seen by Provider: 03/22/24 13:28 Mode of Arrival: Ambulatory Source of Information: Patient Limitations: No Limitations Description of Symptoms (Recalled from ER Triage Doc. by RN): pt states she has been having heart palpatations for a week History of Present Illness HPI narrative: Please note that above description of symptoms, in this electronic medical record under categorization of recalled from ER triage doctor by RN are reflective of an initial nursing assessment, however, is not reflective of my full history and physical exam that was personally taken and clarified. Consequentially, this preceding description of symptoms, which may include the patient's categorized chief complaint in the EMR, do not reflect my personal clinical impression, and the ultimate description of history of present illness and patient stated complaints should be deferred to this section of the note. Unless stated otherwise or congruent with this section of the note, additional signs, symptoms, or incongruence should be interpreted as inaccurate with my clinical impression. Related Data Home Medications ?Medication ?Instructions ?Recorded ?Confirmed ivermectin 1 % topical cream applic topical 02/09/24 02/27/24 propranolol 10 mg tablet 10 mg PO ONCE 02/09/24 02/27/24 Previous Rx's ?Medication ?Instructions ?Recorded methimazole 5 mg tablet 5 mg PO DAILY #30 tabs 12/24/23 mupirocin 2 % topical ointment 1 applic topical BID infection 14 02/27/24 days #15 grams Allergies Allergy/AdvReac Type Severity Reaction Status Date / Time clarithromycin [From Biaxin] Allergy Vomiting Verified 02/09/24 14:22 valacyclovir Allergy Palpitation Verified 02/09/24 14:22 s atenolol AdvReac Severe Difficulty Uncoded 02/09/24 14:22 Breathing PFSH [facility] Disclaimer: The information contained in this section may have been updated after the patient was seen, as this information can be updated by other users. Medical History Depression Anxiety Thyroid disease Urinary tract infection History of gastroesophageal reflux (GERD) Hyperlipidemia Lyme disease Surgical History History of cholecystectomy Social History Smoking Status: Never smoker alcohol intake: never current occupational status: unemployed Travel in the last 8 weeks: None Other Medical History Have you received the Pneumonia Vaccine: No ROS Obtained: Yes All systems reviewed & no additional complaints except as documented Physical Exam General General appearance: alert Neck Neck exam: Present trachea midline Chest Chest inspection: Present normal inspection and symmetric chest wall rise Respiratory Respiratory exam: Present normal lung sounds bilaterally; Absent respiratory distress, wheezes, stridor, accessory muscle use or prolonged expiratory phase Cardiovascular Cardiovascular exam: Present regular rate, normal rhythm and other (Pulses equal and symmetric in upper and lower extremities) Extremities Exam Extremities exam: Absent edema Neurological Exam Neurological exam: Present alert, oriented X3 and CN II-XII intact Skin Skin exam: Present warm and dry; Absent cyanosis, diaphoresis or pallor HEART Score HEART Score HEART Score assessment performed?: Yes HEART Score: 0 Critical Care Critical Care Time Critical Care Time: No Medical Decision Making Medical Records Medical records reviewed: Yes I reviewed the patient's medical records. Joe Inquiry Pt receiving controlled substance: No Joe was queried for this patient: No Vital Signs Vital Signs: 03/22/24 13:15 03/22/24 13:21 Temperature 98.4 F Temperature Source Oral Pulse Rate 70 Pulse Rate [Right] 78 Respiratory Rate 16 Blood Pressure [Right Arm] 160/95 H Blood Pressure Mean [Right Arm] 116 02 Sat by Pulse Oximetry 97 Oxygen Delivery Method Room Air Lab Data Labs: Lab Results 03/22/24 13:40: WBC 7.5, RBC 4.53, Hgb 14.5, Hct 41.9, MCV 92.4, MCH 32.0 H, MCHC 34.7, RDW 13.8, Plt Count 217, MPV 9.7, Neut % (Auto) 59.5, Lymph % (Auto) 29.3, Jerome % (Auto) 9.4 H, Eos % (Auto) 0.7, Baso % (Auto) 1.2, Neut # (Auto) 4.5, Lymph # (Auto) 2.2, Jerome # (Auto) 0.7, Eos # (Auto) 0.1, Baso # (Auto) 0.1, D-Dimer 0.31, Sodium 135 L, Potassium 3.9, Chloride 109 H, Carbon Dioxide 25, A nion Gap 4.9 L, BUN 11, Creatinine 0.80, Estimated Creat Clear 110, Estimated GFR 81, Est GFR ( Amer) 98, Glucose 72 L, Calcium 8.9, Phosphorus 3.8, Magnesium 2.0, Total Bilirubin 0.5, AST 28, ALT 20, Alkaline Phosphatase 47, Troponin I < 0.01, Total Protein 7.2, Albumin 4.3, Globulin 2.9, Albumin/Globulin Ratio 1.5, TSH 6.16 H, Thyroxine (T4) 7.7, HIV 1&2 Antibody Rapid Nonreactive 03/22/24 13:40 03/22/24 13:40 Response Orders (Tests/Meds): ORDERS Category Date Time Status CBC w/Auto Diff [Complete Blood Count Auto Diff] Stat Lab 03/22/24 13:40 Completed CMP [Comprehensive Metabolic Panel] Stat Lab 03/22/24 13:40 Completed D-Dimer Stat Lab 03/22/24 13:40 Completed HIV (1&2) Antibody Rapid Stat Lab 03/22/24 13:40 Completed Hep C Ab with Reflex to RNA Stat Lab 03/22/24 13:40 Received Magnesium Stat Lab 03/22/24 13:40 Completed Phosphorous Stat Lab 03/22/24 13:40 Completed T4 (Thyroxine) Stat Lab 03/22/24 13:40 Completed TSH [Thyroid Stimulating Hormone] Stat Lab 03/22/24 13:40 Completed Trop I [Troponin I] Stat Lab 03/22/24 13:40 Completed Troponin I Q3H Lab 03/22/24 16:45 Ordered Troponin I Q3H Lab 10/17/24 19:45 Ordered MDM Narrative Medical Decision Narrative: 38-year-old female history of histoplasmosis, hypothyroidism on methimazole presenting with palpitations. Patient states that she thinks her palpitations may be due to low magnesium. She states that she has been taking magnesium pretty consistently, has not taken it the last couple of days, palpitations have been worsening since then. Also has a history of anxiety, does not feel that this is related. States that she has palpitations that are random. Sometimes positional, sometimes associated with food intake, but largely random. States that anxiety has been well-controlled by working on my vagus nerve. No chest pain, shortness of breath, syncope, nausea, vomiting, fevers, chills, weight loss, night sweats, neurologic deficits, lower extremity swelling, easy bruising, bleeding membranes, etc. Came in for further evaluation. History was obtained via conversation with patient. On arrival, patient hemodynamically stable, alert, oriented x4, appropriate, GCS 15, moving all extremities spontaneously, pupils equal and reactive to light. Full physical exam performed and significant for well-appearing female who is in no acute distress. She is mildly anxious., But nontachycardic. Cardiopulmonary exam within normal limits. No lower extremity edema. Pulses equal and symmetric. Good capillary refill. Neurologically intact grossly and ambulatory. Differential includes thyroid abnormality, overmedication, undermedication, cytopenia, intoxication, withdrawal, PE, metabolic abnormality, endocrinologic abnormality otherwise, anxiety, arrhythmia, among others. Patient was given for symptomatic management and correction of underlying abnormalities. Patient placed on continuous cardiac monitoring and continuous pulse ox with initial blood pressure 165/95, heart rate 78, saturation 97. Independent interpretation of EKG shows sinus rhythm 70 beats a minute no ST or T wave changes concerning for acute ischemia. IA 135, QRS 99, QTc 425. Normal axis. Incomplete right bundle branch block. Workup independently interpreted and significant for nonactionable CBC or chemistry. Negative troponin, negative D- dimer. T4 normal at 7.7, TSH Mildly elevated. Magnesium 2.0. Heart score 0. D-dimer negative.On reevaluation, Patient still resting at baseline. Given patient's history, clinical exam, this most likely represents anxiety. Because patient at baseline without signs or symptoms of clinical decompensation, deemed appropriate for discharge. Results were relayed to patient who voiced understanding and were agreeable to outpatient management and follow up. I discussed my clinical impression with patient and answered all questions. At this time, the evidence for any other entities in the differential is insufficient to warrant any further testing or ED observation. This was explained as well. Advisory was given that persistent or worsening symptoms require further evaluation. I confirmed the understanding of this discussion. Crane [employer] disclaimer Much of this encounter note is an electronic steak tenderizer machine spoken language to printed text. Electronic steak tenderizer machine of the spoken language may permit errors. Although I have reviewed the note, some errors may still exist.
[2024-03-22 14:00] LABS: Alanine Aminotransferase 20 U/L (12-78); Albumin Level 4.3 g/dl (3.5-5.0); Albumin/Globulin Ratio 1.5 (1.1-1.8); Alkaline Phosphatase 47 U/L (38-126); Anion Gap 4.9 mEq/L (5-15); Aspartate Amino Transferase 28 U/L (14-36); Bilirubin,Total 0.5 mg/dl (0.2-1.3); Blood Urea Nitrogen 11 mg/dl (7-17); Calcium 8.9 mg/dl (8.4-10.2); Carbon Dioxide 25 mmol/L (22.0-30.0); Chloride 109 mmol/L (98-107); Creatinine Clearance Estimated 110 mL/min (50-200); Estimated Glomerular Filt Rate 81 ml/min (>60); GFR (African American) 98 ML/MIN (>60); Globulin 2.9 g/dL (1.3-3.2); Glucose 72 mg/dl (74-100); Phosphorous 3.8 mg/dl (2.5-4.5); Potassium 3.9 mmoL/L (3.5-5.1); Sodium 135 mmol/L (136-145); Total Protein,Serum 7.2 g/dl (6.3-8.2)
[2024-03-22 14:04] LABS: D-Dimer 0.31 ug/mL (0.0-0.5)
[2024-03-22 14:09] LABS: Basophils # 0.1 K/mm3 (0-0.2); Basophils % 1.2 % (0.1-2.0); Eosinophils # 0.1 K/mm3 (0.0-0.4); Eosinophils % 0.7 % (0.1-12.0); Hematocrit 41.9 % (37.0-47.0); Hemoglobin 14.5 g/dL (12.2-16.2); Lymphocytes # 2.2 K/mm3 (0.7-4.5); Lymphocytes % 29.3 % (10-50); Mean Corpuscular HGB Conc 34.7 g/dL (31.8-35.4); Mean Corpuscular Volume 92.4 fl (81-99); Mean Platelet Volume 9.7 fl (7.4-10.4); Monocytes # 0.7 K/mm3 (0.1-1.0); Monocytes % 9.4 % (1.7-9.3); Neutrophils # 4.5 K/mm3 (1.8-7.8); Neutrophils % 59.5 % (37.0-80.0); Platelet Count 217 K/mm3 (142-424); Red Blood Count 4.53 M/mm3 (4.20-5.40); Red Cell Distribution Width 13.8 % (11.5-17.5); White Blood Count 7.5 K/mm3 (4.8-10.8)
[2024-03-22 14:12] LABS: Troponin I < 0.01 ng/ml (0.00-0.034)
[2024-03-22 14:15] LABS: T4 (Thyroxine) 7.7 ug/dl (5.53-11.0)
[2024-03-22 14:28] LABS: Thyroid Stimulating Hormone 6.16 uIU/mL (0.465-4.68)
[2024-03-22 14:57] LABS: HIV (1&2) Antibody Rapid NONREACTIVE (NONREACTIVE)
[2024-03-22 15:21] VITALS: BP 160/95; PULSE 68; RESP 18; TEMP 36.6; O2SAT 100
[2024-03-23 09:32] LABS: HCV Ab Non Reactive (Non Reactive)
== END 2024-03-22 15:30 | disposition home or self-care (01) ==
PROVIDERS: Emergency Provider Emergency Medicine; PCP Physician Assistant
DX: R00.2 Palpitations (principal); R07.9 Chest pain, unspecified
CPT/HCPCS: 80053; 83735; 84100; 84436; 84443; 84484; 85025; 85378; 86803; 87389; 93005; 99283